=== PATIENT | male | born 1985 | race Caucasian/White ===

== ENCOUNTER 2020-06-16 14:35 | Emergency (ER) | payer MEDICAID, OTHER ==
[~2020-06-16] VITALS: Ht 175.3 cm; Wt 77.3 kg
[~2020-06-16 14:35] MED LIST: ANTI10DR6 EACH EAR; NO HOME MEDS; PANT-47 PO
[2020-06-16 14:51] VITALS: BP 164/103
[2020-06-16 16:35] LABS: CLARITY,URINE SLIGHTLY CLOUDY (Clear); COLOR,URINE YELLOW (Yellow); GLUCOSE, URINE NEGATIVE (Neg); KETONES,URINE NEGATIVE (Neg); LEUKOCYTE ESTERASE ,URINE NEGATIVE (Neg); NITRITES, URINE NEGATIVE (Neg); OCCULT BLOOD,URINE LARGE (Neg); PH,URINE 6.5 (4.8-8.0); PROTEIN,URINE NEGATIVE (Neg); UROBILINOGEN,URINE 0.2 E.U/dL (0.2-1.0)
[2020-06-16 16:40] LABS: UA COLLECTION TYPE NON-SPECIFIED
[2020-06-16 16:46] LABS: MUCUS STRANDS MANY /LPF (Neg); SQUAMOUS EPITHELIAL CELL,UR NONE SEEN /LPF (FEW); TRANSITIONAL EPI CELLS,URINE FEW /HPF
[2020-06-16 16:47] LABS: BACTERIA,URINE NONE SEEN /HPF (Neg); RBC,URINE TNTC /HPF (0-2); WBC,URINE 0-4 /HPF (0-4)
[2020-06-16] MEDS ORDERED: FLO0.4C PO (16:48)
[2020-06-16] MEDS ORDERED: NAPR-56 PO (16:48)
== END 2020-06-16 17:10 | disposition home or self-care (01) ==
LOC: ER 14:36
DX: N23 Unspecified renal colic (principal); R31.9 Hematuria, unspecified; R30.0 Dysuria; Z88.1 Allergy status to other antibiotic agents; Z88.8 Allergy status to other drugs, medicaments and biological substances; Z79.899 Other long term (current) drug therapy
CPT/HCPCS: 81001; 99283

== ENCOUNTER 2020-09-21 15:27 | Emergency (ER) | payer OTHER ==
[~2020-09-21] VITALS: Ht 175.3 cm; Wt 77.3 kg
[2020-09-21 15:40] VITALS: BP 146/95
== END 2020-09-21 16:56 | disposition home or self-care (01) ==
LOC: ER 15:28
DX: F15.90 Other stimulant use, unspecified, uncomplicated (principal); Z13.9 Encounter for screening, unspecified; F17.200 Nicotine dependence, unspecified, uncomplicated; Z87.01 Personal history of pneumonia (recurrent); Z87.442 Personal history of urinary calculi; Z88.2 Allergy status to sulfonamides; Z88.8 Allergy status to other drugs, medicaments and biological substances; Z79.899 Other long term (current) drug therapy
CPT/HCPCS: 72170; 99283